=== PATIENT | female | born 1950 | race Caucasian/White ===

== ENCOUNTER → 2023-12-24 10:18 | Outpatient (REF) | payer MEDICARE, OTHER, SELFPAY | LOC: WDC 10:18 | PROVIDERS: ATTENDING PHYSICIAN Internal Medicine Hematology & Oncology; FAMILY PHYSICIAN Emergency Medicine | DX: N63.20 Unspecified lump in the left breast, unspecified quadrant (principal); N63.24 Unspecified lump in the left breast, lower inner quadrant | CPT/HCPCS: 76642; 77062; 77066 ==

== ENCOUNTER → 2023-12-28 15:54 | Outpatient (REF) | payer MEDICARE, OTHER, SELFPAY ==
[2023-12-28 10:01] LABS: % Basophils 0.2 % (0-2); % Eosinophils 1.9 % (0-6); % Immature Granulocytes 0.2 % (0-0.5); % Lymphocytes 44.2 % (20.5-51.1); % Monocytes 8.7 % (1.7-9.3); % Neutrophils 44.8 % (42.2-75.2); Absolute Eosinophils 0.1 10^3/uL (0-0.7); Absolute Lymphocytes 1.8 10^3/uL (1.2-3.4); Absolute Monocytes 0.4 10^3/uL (0.1-0.6); Absolute Neutrophils 1.8 10^3/uL (1.4-6.5); Hematocrit 30.9 % (37.0-47.0); Hemoglobin 10.7 g/dL (12.0-16.0); Mean Corp Hgb Conc. 34.6 g/dL (33.0-37.0); Mean Corpuscular Hgb 34.6 pg (27.0-31.0); Mean Platelet Volume 9.8 fL (7.4-10.4); Nucleated Red Blood Cells % 0 %; Platelet Count 166 10^3/uL (130-400); Red Blood Cell Count 3.09 10^6/uL (4.20-5.40); Red Cell Dist. Width 14.3 % (11.5-14.5); White Blood Cell Count 4.1 10^3/uL (4.8-10.8)
[2023-12-28 11:16] LABS: ALT (SGPT) 16 U/L (0-35); AST (SGOT) 28 U/L (14-36); Albumin 4.1 g/dl (3.5-5.0); Alkaline Phosphatase 79 U/L (38-126); Blood Urea Nitrogen 13 mg/dl (7-17); Calcium 9.3 mg/dl (8.4-10.2); Carbon Dioxide 26 mmol/L (22-30); Chloride 102 mmol/L (98-107); Glucose 85 mg/dl (70-99); Potassium 4.2 mmol/L (3.5-5.1); Sodium 133 mmol/L (135-145); Total Protein 6.6 g/dl (6.3-8.2); eGFR > 60.00
[2023-12-29 22:30] LABS: CA 27-29 30.2 U/mL (<=39.0)
== END ==
LOC: OIDL 15:54
PROVIDERS: ATTENDING PHYSICIAN Internal Medicine Hematology & Oncology
DX: C50.811 Malignant neoplasm of overlapping sites of right female breast (principal)
CPT/HCPCS: 80053; 85025; 86300

== ENCOUNTER → 2024-01-02 08:53 | Outpatient (REF) | payer MEDICARE, OTHER, SELFPAY | LOC: RAD 08:53 | PROVIDERS: ATTENDING PHYSICIAN Internal Medicine Critical Care Medicine; FAMILY PHYSICIAN Emergency Medicine | DX: R93.89 Abnormal findings on diagnostic imaging of other specified body structures (principal); J84.9 Interstitial pulmonary disease, unspecified | CPT/HCPCS: 71250 ==

== ENCOUNTER → 2024-01-07 09:03 | Outpatient (REF) | payer MEDICARE, OTHER, SELFPAY ==
[2024-01-07 10:23] LABS: Reticulocyte Count 1.5 % (0.4-2.8)
[2024-01-07 10:56] LABS: Iron 121 ug/dl (37-170)
[2024-01-07 11:06] LABS: Percent Saturation 36 % (20-50); Total Iron Binding Capacity 333 ug/dl (265-497)
[2024-01-07 12:01] LABS: Folate > 20.0 ng/ml (2.76-20); Vitamin B12 431 pg/ml (239-931)
[2024-01-08 09:55] LABS: Erythropoietin (EPO) 20 mU/mL (4-27)
== END ==
LOC: REG 09:03
PROVIDERS: ATTENDING PHYSICIAN Nurse Practitioner Adult Health; FAMILY PHYSICIAN Emergency Medicine
DX: C50.811 Malignant neoplasm of overlapping sites of right female breast (principal); C44.702 Unspecified malignant neoplasm of skin of right lower limb, including hip; R53.82 Chronic fatigue, unspecified; D64.9 Anemia, unspecified; R11.0 Nausea; D51.9 Vitamin B12 deficiency anemia, unspecified
CPT/HCPCS: 36415; 82607; 82668; 82728; 82746; 83540; 83550; 85045

== ENCOUNTER → 2024-03-21 09:11 | Outpatient (REF) | payer MEDICARE, OTHER, SELFPAY ==
[2024-03-21 09:30] LABS: % Basophils 0.4 % (0-2); % Eosinophils 2.3 % (0-6); % Immature Granulocytes 0.2 % (0-0.5); % Monocytes 9.3 % (1.7-9.3); % Neutrophils 40.8 % (42.2-75.2); Absolute Eosinophils 0.1 10^3/uL (0-0.7); Absolute Lymphocytes 2.3 10^3/uL (1.2-3.4); Absolute Monocytes 0.5 10^3/uL (0.1-0.6); Hematocrit 31.1 % (37.0-47.0); Hemoglobin 10.8 g/dL (12.0-16.0); Mean Corp Hgb Conc. 34.7 g/dL (33.0-37.0); Mean Corpuscular Hgb 34.2 pg (27.0-31.0); Mean Corpuscular Volume 98.4 fL (81.0-99.0); Mean Platelet Volume 9.7 fL (7.4-10.4); Nucleated Red Blood Cells % 0 %; Platelet Count 167 10^3/uL (130-400); Red Blood Cell Count 3.16 10^6/uL (4.20-5.40); Red Cell Dist. Width 14.5 % (11.5-14.5); White Blood Cell Count 4.8 10^3/uL (4.8-10.8)
[2024-03-21 09:55] LABS: ALT (SGPT) 15 U/L (0-35); AST (SGOT) 25 U/L (14-36); Albumin 4.4 g/dl (3.5-5.0); Alkaline Phosphatase 78 U/L (38-126); Blood Urea Nitrogen 11 mg/dl (7-17); Calcium 9.2 mg/dl (8.4-10.2); Carbon Dioxide 22 mmol/L (22-30); Chloride 103 mmol/L (98-107); Glucose 92 mg/dl (70-99); Potassium 4.3 mmol/L (3.5-5.1); Sodium 134 mmol/L (135-145); Total Protein 6.8 g/dl (6.3-8.2); eGFR > 60.00
[2024-03-23 00:25] LABS: CA 27-29 26.2 U/mL (<=39.0)
== END ==
LOC: OIDL 09:11
PROVIDERS: ATTENDING PHYSICIAN Internal Medicine Hematology & Oncology
DX: C50.811 Malignant neoplasm of overlapping sites of right female breast (principal); C44.702 Unspecified malignant neoplasm of skin of right lower limb, including hip; R53.82 Chronic fatigue, unspecified; D64.9 Anemia, unspecified; R11.0 Nausea
CPT/HCPCS: 80053; 85025; 86300

== ENCOUNTER → 2024-04-16 08:11 | Outpatient (REF) | payer MEDICARE, OTHER, SELFPAY ==
[2024-04-16 08:25] VITALS: BP 140/73; BP_SYST 66
== END ==
LOC: RADI 08:11
PROVIDERS: ATTENDING PHYSICIAN Internal Medicine Hematology & Oncology; FAMILY PHYSICIAN Emergency Medicine
DX: Z45.2 Encounter for adjustment and management of vascular access device (principal); Z85.3 Personal history of malignant neoplasm of breast
CPT/HCPCS: 36590; 77001

== ENCOUNTER → 2024-05-23 12:05 | Outpatient (REF) | payer MEDICARE, OTHER, SELFPAY | LOC: RAD 12:05 | PROVIDERS: ATTENDING PHYSICIAN Internal Medicine Critical Care Medicine; FAMILY PHYSICIAN Emergency Medicine | DX: J84.9 Interstitial pulmonary disease, unspecified (principal) | CPT/HCPCS: 71250 ==

== ENCOUNTER → 2024-06-20 09:11 | Outpatient (REF) | payer MEDICARE, OTHER, SELFPAY ==
[2024-06-20 10:10] LABS: % Basophils 0.5 % (0-2); % Immature Granulocytes 0.4 % (0-0.5); % Lymphocytes 38.8 % (20.5-51.1); % Monocytes 8.6 % (1.7-9.3); % Neutrophils 49.7 % (42.2-75.2); Absolute Eosinophils 0.1 10^3/uL (0-0.7); Absolute Lymphocytes 2.1 10^3/uL (1.2-3.4); Absolute Monocytes 0.5 10^3/uL (0.1-0.6); Absolute Neutrophils 2.7 10^3/uL (1.4-6.5); Hemoglobin 11.8 g/dL (12.0-16.0); Mean Corp Hgb Conc. 34.7 g/dL (33.0-37.0); Mean Corpuscular Hgb 34.8 pg (27.0-31.0); Mean Corpuscular Volume 100.3 fL (81.0-99.0); Mean Platelet Volume 9.7 fL (7.4-10.4); Nucleated Red Blood Cells % 0 %; Platelet Count 171 10^3/uL (130-400); Red Blood Cell Count 3.39 10^6/uL (4.20-5.40); Red Cell Dist. Width 14.4 % (11.5-14.5); Reticulocyte Count 1.2 % (0.4-2.8); White Blood Cell Count 5.5 10^3/uL (4.8-10.8)
[2024-06-20 11:01] LABS: ALT (SGPT) 17 U/L (0-35); AST (SGOT) 29 U/L (14-36); Albumin 4.8 g/dl (3.5-5.0); Alkaline Phosphatase 82 U/L (38-126); Blood Urea Nitrogen 10 mg/dl (7-17); Calcium 9.4 mg/dl (8.4-10.2); Carbon Dioxide 23 mmol/L (22-30); Chloride 99 mmol/L (98-107); Glucose 91 mg/dl (70-99); HDL Cholesterol 95 mg/dl; Iron 112 ug/dl (37-170); LDL Cholesterol, Calculated 72 mg/dl; Potassium 4.3 mmol/L (3.5-5.1); Sodium 139 mmol/L (135-145); Total Bilirubin 0.9 mg/dl (0.2-1.3); Total Cholesterol 184 mg/dl (50-199); Total Protein 7.5 g/dl (6.3-8.2); Triglyceride 87 mg/dl (10-149); Very Low Density Lipoprotein 17 mg/dl (0-30); eGFR > 60.00
[2024-06-20 11:12] LABS: Percent Saturation 34 % (20-50); Total Iron Binding Capacity 321 ug/dl (265-497)
[2024-06-20 11:49] LABS: TSH Reflex To Free T4 3.25 uIU/ml (0.47-4.68)
[2024-06-20 13:58] LABS: Glycohemoglobin (HgbA1c) 5.2 % (4.0-5.6)
[2024-06-21 16:27] LABS: Erythropoietin (EPO) 14 mU/mL (4-27)
[2024-06-22 00:01] LABS: CA 27-29 30.6 U/mL (<=39.0)
== END ==
LOC: REG 09:11
PROVIDERS: ATTENDING PHYSICIAN Internal Medicine Hematology & Oncology; FAMILY PHYSICIAN Emergency Medicine
DX: Z00.00 Encounter for general adult medical examination without abnormal findings (principal); C50.811 Malignant neoplasm of overlapping sites of right female breast; C44.702 Unspecified malignant neoplasm of skin of right lower limb, including hip; R53.82 Chronic fatigue, unspecified; D64.9 Anemia, unspecified; R11.0 Nausea; Z79.899 Other long term (current) drug therapy
CPT/HCPCS: 36415; 80053; 80061; 82668; 82728; 83036; 83540; 83550; 84443; 85025; 85045; 86300

== ENCOUNTER → 2024-11-15 09:40 | Outpatient (REF) | payer MEDICARE, OTHER, SELFPAY | LOC: RAD 09:40 | PROVIDERS: ATTENDING PHYSICIAN Internal Medicine Critical Care Medicine; FAMILY PHYSICIAN Emergency Medicine; REFERRING PHYSICIAN Internal Medicine Hematology & Oncology | DX: R93.89 Abnormal findings on diagnostic imaging of other specified body structures (principal); J84.9 Interstitial pulmonary disease, unspecified | CPT/HCPCS: 71250 ==

== ENCOUNTER → 2024-11-19 08:03 | Outpatient (REF) | payer MEDICARE, OTHER, SELFPAY | LOC: WDC 08:03 | PROVIDERS: ATTENDING PHYSICIAN Family Medicine Geriatric Medicine; FAMILY PHYSICIAN Emergency Medicine | DX: Z78.0 Asymptomatic menopausal state (principal); R92.30 Dense breasts, unspecified; Z85.3 Personal history of malignant neoplasm of breast; Z12.39 Encounter for other screening for malignant neoplasm of breast | CPT/HCPCS: 76641; 77080 ==

== ENCOUNTER → 2024-11-21 09:10 | Outpatient (REF) | payer MEDICARE, OTHER, SELFPAY ==
[2024-11-21 17:23] LABS: % Basophils 0.4 % (0-2); % Eosinophils 2.4 % (0-6); % Immature Granulocytes 0.2 % (0-0.5); % Lymphocytes 43.4 % (20.5-51.1); % Monocytes 8.1 % (1.7-9.3); % Neutrophils 45.5 % (42.2-75.2); Absolute Eosinophils 0.1 10^3/uL (0-0.7); Absolute Monocytes 0.4 10^3/uL (0.1-0.6); Absolute Neutrophils 2.1 10^3/uL (1.4-6.5); Hematocrit 34.9 % (37.0-47.0); Hemoglobin 11.5 g/dL (12.0-16.0); Mean Corpuscular Hgb 34.4 pg (27.0-31.0); Mean Corpuscular Volume 104.5 fL (81.0-99.0); Mean Platelet Volume 9.9 fL (7.4-10.4); Nucleated Red Blood Cells % 0 %; Platelet Count 194 10^3/uL (130-400); Red Blood Cell Count 3.34 10^6/uL (4.20-5.40); Red Cell Dist. Width 14.6 % (11.5-14.5); White Blood Cell Count 4.7 10^3/uL (4.8-10.8)
[2024-11-21 17:29] LABS: Urine Albumin Negative (Neg - Trace); Urine Bilirubin Negative (Negative); Urine Character Clear (Clear); Urine Color Yellow; Urine Glucose Negative (Negative); Urine Ketone Negative (Negative); Urine Leukocyte 3+ (Negative); Urine Nitrite Negative (Negative); Urine Occult Blood 2+ (Negative); Urine Urobilinogen Negative (Neg - 1+)
[2024-11-21 17:49] LABS: Urine Squamous Cell 26-30 /LPF (Few)
[2024-11-21 17:50] LABS: Urine Bacteria Many (Negative)
[2024-11-21 18:04] LABS: ALT (SGPT) 18 U/L (0-35); AST (SGOT) 27 U/L (14-36); Albumin 4.4 g/dl (3.5-5.0); Alkaline Phosphatase 86 U/L (38-126); Blood Urea Nitrogen 15 mg/dl (7-17); Carbon Dioxide 28 mmol/L (22-30); Chloride 102 mmol/L (98-107); Glucose 85 mg/dl (70-99); Iron 112 ug/dl (37-170); Lipase 99 U/L (23-300); Potassium 4.7 mmol/L (3.5-5.1); Sodium 138 mmol/L (135-145); Total Bilirubin 0.9 mg/dl (0.2-1.3); Total Protein 7.3 g/dl (6.3-8.2); eGFR > 60.00
[2024-11-21 18:14] LABS: Percent Saturation 34 % (20-50); Total Iron Binding Capacity 323 ug/dl (265-497)
[2024-11-21 18:36] LABS: TSH Reflex To Free T4 5.55 uIU/ml (0.47-4.68)
[2024-11-21 19:02] LABS: Free T4 1.28 ng/dl (0.78-2.19)
== END ==
LOC: CLAB 09:10
PROVIDERS: ATTENDING PHYSICIAN Emergency Medicine
DX: R11.0 Nausea (principal); M79.10 Myalgia, unspecified site; D64.9 Anemia, unspecified; R10.9 Unspecified abdominal pain
CPT/HCPCS: 36415; 80053; 81003; 81015; 82728; 83540; 83550; 83690; 84439; 84443; 85025; 87077; 87086; 87147

== ENCOUNTER → 2024-12-22 08:59 | Outpatient (REF) | payer MEDICARE, OTHER, SELFPAY ==
[2024-12-22 10:20] LABS: Vitamin D, 25-OH*** 75.6 ng/mL (30-80)
== END ==
LOC: REG 08:59
PROVIDERS: ATTENDING PHYSICIAN Obstetrics & Gynecology Gynecology; FAMILY PHYSICIAN Emergency Medicine
DX: E55.9 Vitamin D deficiency, unspecified (principal)
CPT/HCPCS: 36415; 82306

== ENCOUNTER → 2025-03-12 12:10 | Outpatient (REF) | payer MEDICARE, OTHER, SELFPAY ==
[2025-03-12 13:24] LABS: Hematocrit 32.7 % (37.0-47.0); Hemoglobin 11.1 g/dL (12.0-16.0); Mean Corp Hgb Conc. 33.9 g/dL (33.0-37.0); Mean Corpuscular Volume 96.7 fL (81.0-99.0); Nucleated Red Blood Cells % 0 %; Platelet Count 200 10^3/uL (130-400); Red Cell Dist. Width 14.3 % (11.5-14.5)
[2025-03-12 14:06] LABS: ALT (SGPT) 13 U/L (0-35); AST (SGOT) 23 U/L (14-36); Albumin 4.7 g/dl (3.5-5.0); Alkaline Phosphatase 68 U/L (38-126); Blood Urea Nitrogen 14 mg/dl (7-17); Calcium 9.4 mg/dl (8.4-10.2); Carbon Dioxide 25 mmol/L (22-30); Chloride 102 mmol/L (98-107); Glucose 89 mg/dl (70-99); Potassium 5.0 mmol/L (3.5-5.1); Sodium 133 mmol/L (135-145); Total Protein 7.3 g/dl (6.3-8.2); eGFR > 60.00
[2025-03-12 14:41] LABS: C-Reactive Protein < 5.00 mg/L (0.0-10.00)
[2025-03-12 14:54] LABS: Vitamin D, 25-OH*** 66.5 ng/mL (30-80)
[2025-03-12 15:01] LABS: Cortisol, Random 6.7 ug/dl; TSH 2.38 uIU/ml (0.47-4.68)
[2025-03-16 07:59] LABS: CA 27-29 25.9 U/mL (<=39.0)
[2025-03-16 14:19] LABS: CTx 242 pg/mL
[2025-03-17 23:51] LABS: Albumin 4.46 g/dL (3.75-5.01); SPEP IFE Reflex Not Done; Total Protein-Electrophoresis 7.2 g/dL (6.3-8.2)
== END ==
LOC: REG 12:10
PROVIDERS: ATTENDING PHYSICIAN Internal Medicine Hematology & Oncology; FAMILY PHYSICIAN Emergency Medicine; OTHER PHYSICIAN Internal Medicine Rheumatology
DX: C50.811 Malignant neoplasm of overlapping sites of right female breast (principal); C44.702 Unspecified malignant neoplasm of skin of right lower limb, including hip; R53.82 Chronic fatigue, unspecified; D64.9 Anemia, unspecified; R11.0 Nausea; E55.9 Vitamin D deficiency, unspecified; M81.0 Age-related osteoporosis without current pathological fracture; Z51.81 Encounter for therapeutic drug level monitoring
CPT/HCPCS: 36415; 80053; 82306; 82523; 82533; 82784; 83516; 83970; 84155; 84165; 84443; 85025; 86140; 86231; 86300

== ENCOUNTER → 2025-03-14 10:39 | Outpatient (REF) | payer MEDICARE, OTHER, SELFPAY ==
[2025-03-14 11:49] LABS: 24 Hour Urine Total Volume 1500 ml
== END ==
LOC: REG 10:39
PROVIDERS: ATTENDING PHYSICIAN Internal Medicine Rheumatology; FAMILY PHYSICIAN Emergency Medicine
DX: E55.9 Vitamin D deficiency, unspecified (principal); M81.0 Age-related osteoporosis without current pathological fracture; Z51.81 Encounter for therapeutic drug level monitoring
CPT/HCPCS: 81050; 82340

== ENCOUNTER → 2025-03-20 14:59 | Outpatient (REF) | payer MEDICARE, OTHER, SELFPAY | LOC: WDC 14:59 | PROVIDERS: ATTENDING PHYSICIAN Internal Medicine Hematology & Oncology; FAMILY PHYSICIAN Emergency Medicine | DX: Z12.31 Encounter for screening mammogram for malignant neoplasm of breast (principal) | CPT/HCPCS: 77063; 77067 ==

== ENCOUNTER → 2025-06-24 07:32 | Outpatient (REF) | payer MEDICARE, OTHER, SELFPAY ==
[2025-06-24 08:13] LABS: Hematocrit 37.5 % (37.0-47.0); Hemoglobin 12.2 g/dL (12.0-16.0); Mean Corp Hgb Conc. 32.5 g/dL (33.0-37.0); Mean Corpuscular Volume 100.0 fL (81.0-99.0); Nucleated Red Blood Cells % 0 %; Platelet Count 222 10^3/uL (130-400); Red Cell Dist. Width 14.6 % (11.5-14.5)
[2025-06-24 08:57] LABS: ALT (SGPT) 17 U/L (0-35); AST (SGOT) 26 U/L (14-36); Albumin 4.6 g/dl (3.5-5.0); Alkaline Phosphatase 104 U/L (38-126); Blood Urea Nitrogen 15 mg/dl (7-17); Calcium 9.1 mg/dl (8.4-10.2); Carbon Dioxide 28 mmol/L (22-30); Chloride 102 mmol/L (98-107); Glucose 83 mg/dl (70-99); HDL Cholesterol 89 mg/dl; LDL Cholesterol, Calculated 101 mg/dl; Potassium 4.8 mmol/L (3.5-5.1); Sodium 137 mmol/L (135-145); Total Protein 7.3 g/dl (6.3-8.2); Very Low Density Lipoprotein 14 mg/dl (0-30); eGFR > 60.00
[2025-06-24 09:52] LABS: Glycohemoglobin (HgbA1c) 5.3 % (4.0-5.9)
== END ==
LOC: REG 07:32
PROVIDERS: ATTENDING PHYSICIAN Nurse Practitioner Family
DX: D64.9 Anemia, unspecified (principal); Z13.220 Encounter for screening for lipoid disorders; Z13.1 Encounter for screening for diabetes mellitus; E03.9 Hypothyroidism, unspecified; E86.0 Dehydration; R73.03 Prediabetes
CPT/HCPCS: 36415; 80053; 80061; 83036; 85025